=== PATIENT | male | born 1985 | race Caucasian/White ===

== ENCOUNTER → 2023-07-29 08:34 | Outpatient (REF) | payer BC, SELFPAY | LOC: CLAB 08:34 | PROVIDERS: ATTENDING PHYSICIAN Surgery | DX: Z30.2 Encounter for sterilization (principal) | CPT/HCPCS: 88302 ==

== ENCOUNTER → 2023-08-08 13:50 | Outpatient (REF) | payer BC, SELFPAY | LOC: RAD 13:50 | PROVIDERS: ATTENDING PHYSICIAN Surgery | DX: N45.3 Epididymo-orchitis (principal) | CPT/HCPCS: 76870; 93976 ==

== ENCOUNTER 2023-12-07 09:48 | Emergency (ER) | payer BC, SELFPAY ==
[2023-12-07 09:50] VITALS: BP 148/99
--- NOTE | 2023-12-07 10:01 | ED.GENMED ---
History of Present Illness
<Jose Verdin PA-C - Last Filed: 12/07/23 15:06>
General
Chief Complaint: Abdominal Pain
Source: patient
Exam Limitations: none
Time Seen by Provider: 12/07/23 09:55
History of Present Illness
History of Present Illness:
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 There is associated nausea with decreased appetite. No fever. No vomiting. No
radiation of pain to the flank. No urinary symptoms. Is moving his bowels well. No other complaints at this time
Phy Exam
<Jose Verdin PA-C - Last Filed: 12/07/23 15:06>
Physical Exam
Physical Exam:
General: Well-appearing male no acute respiratory distress
HEENT: Normocephalic atraumatic
Heart: Regular rate and rhythm
Abdomen: Soft tender to the mid and right lower abdomen. No guarding or rebound tenderness
Course
<Jose Verdin PA-C - Last Filed: 12/07/23 15:06>
Orders/Labs/Results
Orders:
Orders
12/07/23 10:01
CT Abd/pelvis W Iv Cont Urgent
Comment:
Reason For Exam: rlq pain
12/07/23 10:33
Basic Metabolic Panel Urgent
Complete Blood Count/With Diff Urgent
12/07/23 13:10
Diphenhydramine [Benadryl] 25 mg IV NOW STA
12/07/23 14:03
Dexamethasone Sod Phosphate [Decadron] 10 mg IV NOW STA
Famotidine [Pepcid] 20 mg IV NOW STA
12/07/23 10:33
12/07/23 10:33
Vital Signs
Initial and Last Documented VS:
Initial Vital Signs
Temp Pulse Resp BP Pulse Ox
97.8 F 78 18 148/99 99
12/07/23 09:50 12/07/23 09:50 12/07/23 09:50 12/07/23 09:50 12/07/23 09:50
Last Documented Vital Signs
Temp Pulse Resp BP Pulse Ox
97.8 F 74 17 136/73 97
12/07/23 09:50 12/07/23 12:29 12/07/23 12:29 12/07/23 14:16 12/07/23 14:17
<Shad Kaufman, DO - Last Filed: 12/07/23 14:19>
Orders/Labs/Results
Orders:
Orders
12/07/23 10:01
CT Abd/pelvis W Iv Cont Urgent
Comment:
Reason For Exam: rlq pain
12/07/23 10:33
Basic Metabolic Panel Urgent
Complete Blood Count/With Diff Urgent
12/07/23 13:10
Diphenhydramine [Benadryl] 25 mg IV NOW STA
12/07/23 14:03
Dexamethasone Sod Phosphate [Decadron] 10 mg IV NOW STA
Famotidine [Pepcid] 20 mg IV NOW STA
12/07/23 10:33
12/07/23 10:33
Vital Signs
Initial and Last Documented VS:
Initial Vital Signs
Temp Pulse Resp BP Pulse Ox
97.8 F 78 18 148/99 99
12/07/23 09:50 12/07/23 09:50 12/07/23 09:50 12/07/23 09:50 12/07/23 09:50
Last Documented Vital Signs
Temp Pulse Resp BP Pulse Ox
97.8 F 74 17 136/73 97
12/07/23 09:50 12/07/23 12:29 12/07/23 12:29 12/07/23 14:16 12/07/23 14:17
<Jose Verdin PA-C - Last Filed: 12/07/23 15:06>
MDM/Problems Addressed
Differential Diagnosis Includes:
Abdominal pain. Pain is now right lower quadrant. Consider appendicitis versus adenitis versus renal colic.
Will check labs. CT with IV contrast pending of the abdomen and pelvis
Offered medicine for pain or nausea but will hold off for now.
<Jose Verdin PA-C - Last Filed: 12/07/23 15:06>
*Critical Care Note
Total Time (30-74mins, 75-104mins- exclusive of procedures): Not Applicable
<Jose Verdin PA-C - Last Filed: 12/07/23 15:06>
Update Note
Update Note:
Patient reevaluated. Patient did develop eyelid swelling of the left eye mainly some on the right side after IV contrast CT. He was given Benadryl Pepcid and Decadron and was reevaluated short time afterwards and notes movement. Labs reviewed
without any significant finding. CT of the abdomen negative for acute finding. Source of abdominal pain at this point somewhat unclear but no evidence of appendicitis or bowel obstruction. Stable for discharge
ED Attending Note
<Jose Verdin PA-C - Last Filed: 12/07/23 15:06>
-
Portions of this chart may have been created with voice recognition software.� Occasional wrong word or��sound alike� substitutions may have occurred due to the inherent limitations of voice recognition software.
<Shad Kaufman DO - Last Filed: 12/07/23 14:19>
ED Attending Note
Patient seen and examined by attending physician: Yes
I performed the substantive portion of visit, reviewed & personally made and approve the management plan that is documented in note by myself or CARLOZ.: Yes
I performed a history and physical exam of patient and discussed management with resident, I reviewed resident's note and agree with documented findings and plan of care.: Yes
ED Attending Note:
I evaluated patient at bedside. I evaluated him after he had CT dye which likely led to the reaction and he still has some periorbital edema. There is no concern for airway compromise. He was given antihistamine will also be given steroid.
Discharge Plan
Departure
Patient Disposition: Home (Routine Discharge)
Date of Disposition: 12/07/23
Time of Disposition: 15:04
Patient with high blood pressure during this ER visit?: No
Discharge Problem:
Abdominal pain
Instructions: Abdominal Pain
Prescriptions:
New
prednisone 20 mg tablet
40 mg PO DAILY 5 Days Qty: 10 0RF
Referrals:
NONE,* [Family Provider] -
Activity Restrictions/Additional Instructions:
Please return here for any worsening symptoms. Use prednisone if needed if rash or allergic reaction persists from the IV dye.
Interventions
Interventions:
*Risk Screen - Suicide Last Done: 12/07/23 09:50
*General Assessment Last Done: 12/07/23 09:50
*Neglect/Abuse Screening Last Done: 12/07/23 09:50
ED- Fall Risk Assessment Last Done: 12/07/23 10:09
*ED COVID-19 Vaccine History Last Done: 12/07/23 09:50
NS-Gkoeub-Psuuypincn Assessment Last Done: 12/07/23 10:09
Discharge Date and Time
Print Language: DOMINICAN
[2023-12-07 10:07] VITALS: BMI 34.3
[2023-12-07 10:09] VITALS: BP 125/80
[2023-12-07 10:50] LABS: % Basophils 0.7 % (0-2); % Eosinophils 4.1 % (0-6); % Immature Granulocytes 0.3 % (0-0.5); % Lymphocytes 24.1 % (20.5-51.1); % Monocytes 5.8 % (1.7-9.3); Absolute Eosinophils 0.2 10^3/uL (0-0.7); Absolute Lymphocytes 1.4 10^3/uL (1.2-3.4); Absolute Monocytes 0.3 10^3/uL (0.1-0.6); Absolute Neutrophils 3.8 10^3/uL (1.4-6.5); Hemoglobin 15.1 g/dL (13.0-18.0); Mean Corp Hgb Conc. 35.1 g/dL (33.0-37.0); Mean Corpuscular Hgb 29.6 pg (27.0-31.0); Mean Corpuscular Volume 84.3 fL (80.0-94.0); Mean Platelet Volume 8.7 fL (7.4-10.4); Nucleated Red Blood Cells % 0 % (-); Platelet Count 295 10^3/uL (130-400); White Blood Cell Count 5.9 10^3/uL (4.8-10.8)
[2023-12-07 11:08] LABS: Blood Urea Nitrogen 17 mg/dl (9-20); Calcium 9.7 mg/dl (8.4-10.2); Carbon Dioxide 26 mmol/L (22-30); Chloride 104 mmol/L (98-107); Estimated Creatinine Clearance > 125 ml/min; Glucose 94 mg/dl (70-99); Sodium 137 mmol/L (135-145); eGFR > 60.00
[2023-12-07] MEDS: BENADRYL 25 MG IV (13:21)
[2023-12-07 14:16] VITALS: BP 136/73
[2023-12-07] MEDS: PEPCID 20 MG IV (14:18)
[2023-12-07] MEDS: DECADRON 10 MG IV (14:18)
== END 2023-12-07 15:20 | disposition home or self-care (01) ==
LOC: EMR 09:48
PROVIDERS: Physician Assistant; EMERGENCY PHYSICIAN Emergency Medicine
DX: R10.33 Periumbilical pain (principal)
CPT/HCPCS: 99284; 96374; 96375; 74177; 80048; 85025; Q9967

== ENCOUNTER → 2024-08-12 06:34 | Outpatient (REF) | payer BC, SELFPAY | LOC: MRI 3T 06:34 | PROVIDERS: ATTENDING PHYSICIAN Physician Assistant Surgical | DX: M25.512 Pain in left shoulder (principal) | CPT/HCPCS: 73221 ==